=== PATIENT | male | born 1980 ===

== ENCOUNTER 2025-01-17 13:40 | Inpatient (IN) | payer OTHER, SELFPAY ==
[2025-01-17 13:48] VITALS: BP 107/85; BP 114/74; PULSE 58; PULSE 60; RESP 18; TEMP 36; O2SAT 100; O2SAT 99; BMI 20.8
--- NOTE | 2025-01-17 14:09 | MHC.CARE ---
Pt sent in by [facility] and will be inpatient bedsearch, CHD to fa assessment when completed.
[2025-01-17 14:17] LABS: MANUAL DIFF FLAG NO
[2025-01-17 14:18] LABS: Hematocrit 44.2 % (42.0-52.0); Hemoglobin 14.5 g/dl (14.0-18.0); Imm Gran Abs Auto 0.02 X10*3/uL (0.00-0.03); Imm Gran Pct Auto 0.3 % (0.0-0.4); Lymphocytes Absolute Auto 1.9 X10*3/uL (1.2-4.9); Mean Corpuscular HGB Conc 32.8 g/dl (31.0-36.0); Mean Corpuscular Hemoglobin 29.7 pg (27.0-33.0); Mean Corpuscular Volume 90.6 fL (80.0-98.0); NRBC Abs Auto 0.000 X10*3/uL (0.0-0.012); NRBC Pct Auto 0.0 /100WBC (0.0-0.2); Platelet Count 208 X10*3/uL (160-400); Red Blood Count 4.88 X10*6/uL (4.60-5.80); White Blood Count 7.6 X10*3/uL (4.8-10.8)
--- NOTE | 2025-01-17 14:27 | ED_ITS ---
HPI - General Adult General Chief complaint: Psychiatric Symptoms Stated complaint: SI ATTEMPT T-1,VOLUNTARY TRANSPORT PER EMS Time Seen by Provider: 01/17/25 14:25 Source: patient and EMS Mode of arrival: EMS Limitations: no limitations History of Present Illness ED Provider: Katarina Golden PA-C HPI narrative: Patient is a 44 year old assigned male at with no reported medical history presenting to the emergency department today after a suicide attempt. [facility] staff states that the patient attempted to hang himself at their facility last night and had an intentional overdose as a suicide attempt 1 week ago. Patient states that he has no complaints at this time. Related Data Home Medications ?Medication ?Instructions ?Recorded ?Confirmed No Known Home Meds 01/17/25 01/17/25 Allergies Allergy/AdvReac Type Severity Reaction Status Date / Time Penicillins Allergy Anaphylaxis Verified 01/17/25 14:12 Review of Systems 2 Constitutional: Constitutional: Reports as per HPI Eyes: Eyes: Reports as per HPI ENT: Reports as per HPI Cardiovascular: Cardiovascular: Reports as per HPI Respiratory: Respiratory: Reports as per HPI Gastrointestinal: Gastrointestinal: Reports as per HPI Genitourinary: Genitourinary: Reports as per HPI Musculoskeletal: Musculoskeletal: Reports as per HPI Integumentary/Breasts: Skin/Breast: Reports as per HPI Neurologic: Reports as per HPI Psychiatric: Psychiatric: Denies homicidal ideation and Reports suicidal ideation Endocrine: Endocrine: Reports as per HPI Hematologic/Lymphatic: Hematologic/Lymphatic: Reports as per HPI Allergic/Immunologic: Allergic/Immunologic: Reports as per HPI [facility] Past Medical History Attestation statement: The following information was validated with the patient. Source: old records reviewed and nursing notes reviewed Social History Social History Unable to assess alcohol history related to: Unknown Smoked in Last 30 Days: Yes Substance Use Type: Crack/Cocaine Advance Directives: No Advance Directives Information Provided: Yes Do you have a plan to hurt others: No Plan Physical Exam ED Vital Signs: Vital Signs - 24 hr 01/17/25 13:48 01/17/25 14:48 Temperature 96.8 F 96.8 F Pulse Rate 60 60 Respiratory Rate 18 18 Blood Pressure 107/85 107/85 Pulse Oximetry 100 100 Oxygen Delivery Method Room Air Room Air BMI result Body Mass Index 20.8 Const General: cooperative, no acute distress, alert and awake Nutritional Appearance: well nourished Orientation/consciousness: patient oriented x3 HENMT Head: Yes normal to inspection and Yes atraumatic Ears: hearing grossly normal bilaterally and external ears normal General nose exam: Normal external nose present, no nasal discharge noted and no epistaxis Face and sinus: Yes normal facial exam, No abrasion and No laceration Mouth: Normal oral and palatal mucosa present, no drooling and no muffled voice Eyes General: appearance normal, both eyes and all related structures Periorbital: periorbital findings normal Eyelids: Yes eyelids normal Conjunctivae: conjunctivae normal Pupils: Equal, round and reactive pupils present EOM: EOMs intact bilaterally Neck Neck: Yes normal visual inspection and Yes full ROM Resp Effort & Inspection: normal respiratory effort and able to speak in complete sentences Neuro General: patient oriented x3, moves all extremities and CN's II-XI intact bilaterally Cranial nerves: Yes Equal, round and reactive pupils present Cognition (Neuro): normal cognition Extrem General: Yes normal to inspection, Yes full ROM and Yes capillary refill normal Psych Appearance: grossly normal Mental Status: mental status grossly normal Affect: normal affect Attitude: cooperative Medical Decision Making Medical Decision Making MDM Narrative: Patient is a 44 year old assigned male at with no reported medical history presenting to the emergency department today after a suicide attempt. Patient's physical exam was unremarkable - no evidence of ligature sanchez. Patient's blood work was unremarkable. I explained my physical exam findings as well as all test results to the patient. I answered all questions asked by the patient. Patient placed in observation pending CARE team evaluation at 1428. Differential Diagnosis Differential Diagnoses: The differential diagnosis associated with the presentation includes Suicidal ideation Suicide attempt Admission/Observation Consideration of admission/observation: Escalation of care including admission/observation considered Patient's disposition will be determined after CARE Team evaluation. Lab Data [facility] Lab Attestation statement: I reviewed the patient's lab results. My interpretation of these results are in the [facility] Rationale portion of this note. 01/17/25 14:12 01/17/25 14:12 Labs: Lab Results 01/17/25 Range/Units 14:12 WBC 7.6 (4.8-10.8) X10*3/uL RBC 4.88 (4.60-5.80) X10*6/uL Hgb 14.5 (14.0-18.0) g/dl Hct 44.2 (42.0-52.0) % MCV 90.6 (80.0-98.0) fL MCH 29.7 (27.0-33.0) pg MCHC 32.8 (31.0-36.0) g/dl RDW 14.9 (11.0-16.0) % Plt Count 208 (160-400) X10*3/uL MPV 10.4 (9.4-12.4) fL Immature Gran % (Auto) 0.3 (0.0-0.4) % Neut % (Auto) 63.8 (45-73) % Lymph % (Auto) 24.4 (20-40) % [place] % (Auto) 9.5 (2-11) % Eos % (Auto) 1.2 (0-4) % Baso % (Auto) 0.8 (0-2) % Lymph # (Auto) 1.9 (1.2-4.9) X10*3/uL [place] # (Auto) 0.7 (0.1-1.2) X10*3/uL Eos # (Auto) 0.1 (0.0-0.4) X10*3/uL Baso # (Auto) 0.1 (0.0-0.2) X10*3/uL Abs Immat Gran (auto) 0.02 (0.00-0.03) X10*3/uL Absolute Neuts (auto) 4.9 (2.0-8.3) x10*3/uL Absolute Nucleated RBC 0.000 (0.0-0.012) X10*3/uL Nucleated RBC % (auto) 0.0 (0.0-0.2) /100WBC Sodium 139 (135-145) mmol/L Potassium 4.2 (3.3-5.1) mmol/L Chloride 103 (96-108) mmol/L Carbon Dioxide 29 (22-29) mmol/L Anion Gap 11 L (12-20) BUN 17 H (9-16) mg/dL Creatinine 0.73 (0.5-1.4) mg/dL Estim Creat Clear Calc 116.8 Estimated GFR > 60 Random Glucose 120 H (60-115) mg/dL Calcium 9.4 (8.4-10.2) mg/dL Magnesium 2.3 (1.6-2.6) mg/dL Total Bilirubin 0.4 (0.0-1.0) mg/dL AST 33 (5-37) U/L ALT 62 H (0-40) U/L Alkaline Phosphatase 70 (39-117) U/L Total Protein 7.2 (6.5-8.0) g/dL Albumin 4.5 (3.5-5.0) g/dL Salicylates < 5.0 L (15-30) mg/dL Acetaminophen < 3 (<30) mcg/mL Ethyl Alcohol < 10 mg/dL Independent Historian Clinical information obtained from an independent historian. History obtained from or confirmed by: EMS (EMS provided additional history and confirmed the history provided by the patient. ) Discharge Plan Discharge Clinical Impression: Suicide attempt Prescriptions: No Action No Known Home Meds Interventions: [place]-Suicide Risk Severity Scale Last Done: 01/17/25 14:48 Print Language: Taiwanese
[2025-01-17 14:46] LABS: Alanine Aminotransferase 62 U/L (0-40); Albumin Level 4.5 g/dL (3.5-5.0); Alkaline Phosphatase 70 U/L (39-117); Anion Gap 11 (12-20); Aspartate Amino Transferase 33 U/L (5-37); Blood Urea Nitrogen 17 mg/dL (9-16); Calcium 9.4 mg/dL (8.4-10.2); Carbon Dioxide 29 mmol/L (22-29); Chloride 103 mmol/L (96-108); Creatinine Clr Calc Pharmacy 116.8; Estimated Glomerular Filt Rate > 60; Magnesium 2.3 mg/dL (1.6-2.6); Potassium 4.2 mmol/L (3.3-5.1); Sodium 139 mmol/L (135-145); Total Protein 7.2 g/dL (6.5-8.0)
[2025-01-17 14:48] VITALS: BP 107/85; PULSE 60; RESP 18; TEMP 36; O2SAT 100
[2025-01-17 14:51] LABS: Acetaminophen LAB < 3 mcg/mL (<30); Salicylate < 5.0 mg/dL (15-30)
--- NOTE | 2025-01-17 17:24 | ECG_ITS ---
Test Reason : RO QTC Blood Pressure : */* mmHG Vent. Rate : 54 BPM Atrial Rate : 54 BPM P-R Int : 128 ms QRS Dur : 80 ms QT Int : 408 ms P-R-T Axes : 38 18 13 degrees QTcB Int : 386 ms Sinus bradycardia Otherwise normal ECG No previous ECGs available Referred By: Generic ED Physician Electronically Signed By: YONG JEROME
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
[2025-01-17 17:45] LABS: Appearance Urine Clear; Glucose Urine UA Negative (Negative); PH 6.5 (5.0-9.0); Specific Gravity - Urine 1.025 (1.005-1.025); UMIC TRIGGER UACC YES
[2025-01-17 17:55] LABS: Cannabinoid Screen Urine POSITIVE (Not Detect)
[2025-01-17 18:27] VITALS: BP 118/60; PULSE 63; RESP 18; TEMP 36.7; O2SAT 100
--- NOTE | 2025-01-17 19:41 | PC.NURSE ---
Assumed care of patient at 1845, patient calm and cooperative, offering no complaints to this RN. Pt aware of plan of care for inpatient admission moncho
[2025-01-17 20:55] VITALS: BP 111/75; PULSE 56; RESP 16; TEMP 36.8; O2SAT 100
[2025-01-17 20:58] VITALS: BMI 23.3
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
[2025-01-18 07:49] VITALS: BP 131/68; PULSE 61; RESP 16; TEMP 36.4; O2SAT 100
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
[2025-01-18 20:00] VITALS: BP 138/78; PULSE 58; RESP 16; TEMP 36.8; O2SAT 97
[2025-01-19 07:00] VITALS: BMI 23.5
[2025-01-19 07:41] VITALS: BP 130/62; PULSE 50; RESP 20; TEMP 36.9; O2SAT 100
[2025-01-19 08:05] LABS: Hemoglobin A1C 152.9526 umol/L; Total Hemoglobin (HGBA1C) 3891.8775 umol/L
[2025-01-19 08:21] LABS: Alanine Aminotransferase 87 U/L (0-40); Albumin Level 4.3 g/dL (3.5-5.0); Alkaline Phosphatase 69 U/L (39-117); Anion Gap 11 (12-20); Aspartate Amino Transferase 45 U/L (5-37); Blood Urea Nitrogen 16 mg/dL (9-16); Calcium 9.5 mg/dL (8.4-10.2); Carbon Dioxide 29 mmol/L (22-29); Chloride 103 mmol/L (96-108); Cholesterol 202 mg/dL (<200); Creatinine Clr Calc Pharmacy 122.4; Estimated Glomerular Filt Rate > 60; HDL Cholesterol 60 mg/dL (>40); Potassium 4.5 mmol/L (3.3-5.1); Sodium 138 mmol/L (135-145); Total Protein 7.2 g/dL (6.5-8.0); Triglycerides 73 mg/dL (<150)
[2025-01-19 08:38] LABS: Free T4 (Free Thyroxine) 0.98 ng/dL (0.71-1.85); Thyroid Stimulating Hormone 2.81 uIU/mL (0.32-4.0)
--- NOTE | 2025-01-19 17:00 | HO.WOUND ---
Wound Consult: Initial 44yr old?male admitted [place] [facility] [place] 01[place]17[place]25 - See progress notes and H&P for detailed history.? Wound consult placed for Bilateral Elbow Chronic Wounds. Patient agreeable to assessment and photo documentation.? Right ELbow, Left Elbow, Arm and Axilla Etiology: Ulcerations secondary to skin atrophy from previous bursn and scar tissue formation ? Wound Bed: clean red pink wound beds Drainage / Odor: None Edges: ? attached and well defined Xiao wound: scar tissue and intact ? No Induration, Fluctuance or Warmth noted Pain: tenderness and burning to sites Goals of Treatment: ? Moist wound healing. Patient experiencing dry skin no open wounds noted to trunk or legs but significantly dry skin noted. Provider to order thick ointment cream such as Aquaphor or Dermacin cream. Recommendations: Left Elbow, Right Axilla, Right Forearm and Elbow - Cleanse with normal saline, pat dry. Or With Routine showering with soap and water. ?Apply Xeroform secure foam dressings. Change every other day and PRN. ? Re-consult wound care Nurse for wound deterioration or wound changes.
--- NOTE | 2025-01-19 17:08 | P.PNPSI_ITS ---
Subjective Subjective Date of Service: 01/19/25 Reason For Visit: SI. 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 Active on unit. social with peers. attending groups. Patient reports feeling better but continues to have anxiety about getting into a program. He reports he slept like a baby last night. deneis SI/HI/VH/AH. Future oriented. Medication Compliance: Yes Side effects from medications: No Attending Groups: Intermittent Mental Status Exam Mental Status Exam Narrative: Pt is alert and oriented; behavior is cooperative, friendly and calm; dressed in casual attire; mood is described as good ; eye contact appropriate; Speech is normal rate, volume and not pressured; thought process is organized and goal directed; Thought content is on tx; denies SI/HI/VH/AH. Diagnostics Vital Signs (24Hr): Vital Signs - 24 hr 01/18/25 20:00 01/19/25 07:41 Temperature 98.2 F 98.5 F Pulse Rate 58 50 Respiratory Rate 16 20 Blood Pressure 138/78 130/62 Pulse Oximetry 97 100 Oxygen Delivery Method Room Air Room Air BMI result Body Mass Index 23.5 Labs 01/17/25 14:12 01/19/25 07:39 Labs: Laboratory Results - last 48 hr 01/17/25 01/19/25 17:33 07:39 Sodium 138 Potassium 4.5 Chloride 103 Carbon Dioxide 29 Anion Gap 11 L BUN 16 Creatinine 0.77 Estim Creat Clear Calc 122.4 Estimated GFR > 60 Random Glucose 101 Estimat Average Glucose 117 Hemoglobin A1c % 5.7 Calcium 9.5 Total Bilirubin 0.3 AST 45 H ALT 87 H Alkaline Phosphatase 69 Total Protein 7.2 Albumin 4.3 Triglycerides 73 Cholesterol 202 H LDL Cholesterol, Calc 128 H HDL Cholesterol 60 TSH 2.81 Free T4 0.98 Urine Color Yellow Urine Appearance Clear Urine pH 6.5 Ur Specific [place] 1.025 Urine Protein Negative Urine Glucose (UA) Negative Urine Ketones Negative Urine Blood Moderate (2+) H Urine Nitrite Negative Ur Leukocyte Esterase Trace H Urine RBC 11-20 H Urine WBC 0-5 Ur Squamous Epith Cells 3-5 Urine Bacteria 1+ Hyaline Casts 0-2 Urine Opiates Screen Not Detected Ur Buprenorphine Scrn Not Detected Ur Oxycodone Screen Not Detected Urine Methadone Screen Not Detected Urine Fentanyl Screen Not Detected Ur Barbiturates Screen Not Detected Ur Phencyclidine Scrn Not Detected Ur Amphetamines Screen Not Detected U Benzodiazepines Scrn POSITIVE H Urine Cocaine Screen POSITIVE H U Marijuana (THC) Screen POSITIVE H Medications Medications Current Medications Acetaminophen (Acetaminophen 325 Mg Tablet) 650 mg PO Q6H PRN PRN Reason: Headache/Pain, Scale 1-10 Last Admin: 01/18/25 22:31 Dose: 650 mg Al Hydroxide/Mg Hydroxide (Magnesium Hydrox/Alum Hydrox 30 Ml Oral.Susp) 30 ml PO Q6H PRN PRN Reason: Heartburn/Nausea Fluoxetine HCl (Fluoxetine Hcl 20 Mg Capsule) 20 mg PO DAILY SANTOS Last Admin: 01/19/25 08:07 Dose: 20 mg Hydroxyzine HCl (Hydroxyzine Hcl 25 Mg Tablet) 25 mg PO Q6H PRN PRN Reason: mild anxiety Last Admin: 01/18/25 22:31 Dose: 25 mg Magnesium Hydroxide (Milk Of Magnesia 30 Ml Oral.Susp) 30 ml PO DAILY PRN PRN Reason: Constipation Multi-Ingred Cream/Lotion/Oil/Oint (Mineral Oil/Petrolatum,White 106 Gm Tube) 1 appl TOPICAL BID SANTOS; Protocol Nicotine (Nicotine 21 Mg Patch.Td24) 21 mg TRANSDERMA DAILY PRN PRN Reason: nicotine craving Nicotine Polacrilex (Nicotine Polacrilex 2 Mg Gum) 2 mg BUCCAL Q2H PRN PRN Reason: Nicotine Cravings Olanzapine (Olanzapine 5 Mg Tablet) 5 mg PO BID PRN PRN Reason: agitation Last Admin: 01/18/25 22:32 Dose: 5 mg Trazodone HCl (Trazodone Hcl 50 Mg Tablet) 50 mg PO BEDTIME MRX1 PRN PRN Reason: Insomnia Last Admin: 01/18/25 22:31 Dose: 50 mg Allergies Allergies Allergy/AdvReac Type Severity Reaction Status Date / Time Penicillins Allergy Anaphylaxis Verified 01/17/25 14:12 Assessment & Plan Assessment & Plan (1) MDD (major depressive disorder), recurrent episode: Status: Acute Code(s): F33.9 - Major depressive disorder, recurrent, unspecified (2) PTSD (post-traumatic stress disorder): Status: Acute Code(s): F43.10 - Post-traumatic stress disorder, unspecified (3) Cocaine use disorder: Status: Acute Code(s): F14.10 - Cocaine abuse, uncomplicated (4) Alcohol use disorder: Status: Acute Code(s): F10.90 - Alcohol use, unspecified, uncomplicated (5) Homelessness: Status: Acute Code(s): Z59.00 - Homelessness unspecified Plan Patient is a 44 year old male with hx of MDD, PTSD, alcohol use disorder and cocaine use disorder who self presented to ER due to increased depression secondary to increased life stressors. 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 Active on unit. social with peers. attending groups. Patient reports feeling better but continues to have anxiety about getting into a program. He reports he slept like a baby last night. denfidencios SI/HI/VH/AH. Future oriented. Patient educated on: diagnosis and medication risk/benefits Reason for continued inpatient stay Substantial Risk for: med/psych decompensation Time Spent With Patient Time: Total time managing care of this patient today _20___ minutes.
[2025-01-19 20:00] VITALS: BP 130/78; PULSE 75; RESP 16; TEMP 36.9; O2SAT 99
[2025-01-19] MEDS: Mineral Oil/Petrolatum,White 106 GM Tube 1 APPL TOPICAL (20:37)
[2025-01-20 07:10] VITALS: BP 120/80; PULSE 55; RESP 17; TEMP 36.4; O2SAT 99
--- NOTE | 2025-01-20 08:48 | HO.PSYCHPN ---
Subjective Subjective Date of Service: 01/20/25 Reason For Visit: SI. 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 Active on unit. social with peers. attending groups. Patient continues to report feeling good ;continues on going to a program. Patient reports if he was not accepted into a program he plans on staying with his cousin. deneis SI/HI/VH/AH. Continue current tx plan. Medication Compliance: Yes Side effects from medications: No Attending Groups: Yes Mental Status Exam Mental Status Exam Narrative: Pt is alert and oriented; behavior is cooperative, friendly and calm; dressed in casual attire; mood is described as good ; eye contact appropriate; Speech is normal rate, volume and not pressured; thought process is organized; Thought content is on tx; denies SI/HI/VH/AH. Diagnostics Vital Signs (24Hr): Vital Signs - 24 hr 01/19/25 20:00 01/20/25 07:10 Temperature 98.5 F 97.6 F Pulse Rate 75 55 Respiratory Rate 16 17 Blood Pressure 130/78 120/80 Pulse Oximetry 99 99 Oxygen Delivery Method Room Air Room Air BMI result Body Mass Index 23.5 Labs 01/17/25 14:12 01/19/25 07:39 Labs: Laboratory Results - last 48 hr 01/19/25 07:39 Sodium 138 Potassium 4.5 Chloride 103 Carbon Dioxide 29 Anion Gap 11 L BUN 16 Creatinine 0.77 Estim Creat Clear Calc 122.4 Estimated GFR > 60 Random Glucose 101 Estimat Average Glucose 117 Hemoglobin A1c % 5.7 Calcium 9.5 Total Bilirubin 0.3 AST 45 H ALT 87 H Alkaline Phosphatase 69 Total Protein 7.2 Albumin 4.3 Triglycerides 73 Cholesterol 202 H LDL Cholesterol, Calc 128 H HDL Cholesterol 60 TSH 2.81 Free T4 0.98 Medications Medications Current Medications Acetaminophen (Acetaminophen 325 Mg Tablet) 650 mg PO Q6H PRN PRN Reason: Headache/Pain, Scale 1-10 Last Admin: 01/18/25 22:31 Dose: 650 mg Al Hydroxide/Mg Hydroxide (Magnesium Hydrox/Alum Hydrox 30 Ml Oral.Susp) 30 ml PO Q6H PRN PRN Reason: Heartburn/Nausea Fluoxetine HCl (Fluoxetine Hcl 20 Mg Capsule) 20 mg PO DAILY SANTOS Last Admin: 01/19/25 08:07 Dose: 20 mg Hydroxyzine HCl (Hydroxyzine Hcl 25 Mg Tablet) 25 mg PO Q6H PRN PRN Reason: mild anxiety Last Admin: 01/19/25 23:28 Dose: 25 mg Magnesium Hydroxide (Milk Of Magnesia 30 Ml Oral.Susp) 30 ml PO DAILY PRN PRN Reason: Constipation Multi-Ingred Cream/Lotion/Oil/Oint (Mineral Oil/Petrolatum,White 106 Gm Tube) 1 appl TOPICAL BID SANTOS; Protocol Last Admin: 01/19/25 20:37 Dose: 1 appl Nicotine (Nicotine 21 Mg Patch.Td24) 21 mg TRANSDERMA DAILY PRN PRN Reason: nicotine craving Nicotine Polacrilex (Nicotine Polacrilex 2 Mg Gum) 2 mg BUCCAL Q2H PRN PRN Reason: Nicotine Cravings Olanzapine (Olanzapine 5 Mg Tablet) 5 mg PO BID PRN PRN Reason: agitation Last Admin: 01/19/25 23:28 Dose: 5 mg Trazodone HCl (Trazodone Hcl 50 Mg Tablet) 50 mg PO BEDTIME MRX1 PRN PRN Reason: Insomnia Last Admin: 01/19/25 23:28 Dose: 50 mg Allergies Allergies Allergy/AdvReac Type Severity Reaction Status Date / Time Penicillins Allergy Anaphylaxis Verified 01/17/25 14:12 Assessment & Plan Assessment & Plan (1) MDD (major depressive disorder), recurrent episode: Status: Acute Code(s): F33.9 - Major depressive disorder, recurrent, unspecified (2) PTSD (post-traumatic stress disorder): Status: Acute Code(s): F43.10 - Post-traumatic stress disorder, unspecified (3) Cocaine use disorder: Status: Acute Code(s): F14.10 - Cocaine abuse, uncomplicated (4) Alcohol use disorder: Status: Acute Code(s): F10.90 - Alcohol use, unspecified, uncomplicated (5) Homelessness: Status: Acute Code(s): Z59.00 - Homelessness unspecified Plan Patient is a 44 year old male with hx of MDD, PTSD, alcohol use disorder and cocaine use disorder who self presented to ER due to increased depression secondary to increased life stressors. Plan: CV 15 minute safety checks Obtain collateral Start: Prozac 20mg PO daily Referral to outpatient psychiatric providers Referral to substance abuse program Encourage groups Discharge planning 01/19: account liaison hospice present. Active on unit. social with peers. attending groups. Patient reports feeling better but continues to have anxiety about getting into a program. He reports he slept like a baby last night. getachew CHENEY/SUSY/MADELYN/AH. Future oriented. 01/20: account liaison hospice present. Active on unit. social with peers. attending groups. Patient continues to report feeling good ;continues on going to a program. Patient reports if he was not accepted into a program he plans on staying with his cousin. getachew CHENEY/SUSY/MADELYN/WAYNE. Continue current tx plan. Patient educated on: diagnosis and medication risk/benefits Reason for continued inpatient stay Substantial Risk for: med/psych decompensation Time Spent With Patient Time: Total time managing care of this patient today _20___ minutes.
[2025-01-20] MEDS: Mineral Oil/Petrolatum,White 106 GM Tube 1 APPL TOPICAL (08:52)
[2025-01-20 19:23] VITALS: BP 118/73; PULSE 70; TEMP 36.8; O2SAT 98
[2025-01-21 07:49] VITALS: BP 128/71; PULSE 60; RESP 16; TEMP 36.4; O2SAT 100
[2025-01-21] MEDS: Mineral Oil/Petrolatum,White 106 GM Tube 1 APPL TOPICAL (08:25)
--- NOTE | 2025-01-21 14:22 | HO.PSYCHPN ---
Subjective Subjective Date of Service: 01/21/25 Reason For Visit: SI. 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 Patient continues to report feeling good ; reports feeling more anxious today d/t having to wait to hear if he was accepting into a program. reports sleeping well. denies SI/HI/VH/AH. Continue current tx plan. Medication Compliance: Yes Side effects from medications: No Attending Groups: Yes Mental Status Exam Mental Status Exam Narrative: Pt is alert and oriented; behavior is cooperative, friendly and calm; dressed in casual attire; mood is described as anxious ; eye contact appropriate; Speech is normal rate, volume and not pressured; thought process is organized; Thought content is on tx; denies SI/HI/VH/AH. Diagnostics Vital Signs (24Hr): Vital Signs - 24 hr 01/20/25 19:23 01/21/25 07:49 Temperature 98.2 F 97.5 F Pulse Rate 70 60 Respiratory Rate 16 Blood Pressure 118/73 128/71 Pulse Oximetry 98 100 Oxygen Delivery Method Room Air Room Air BMI result Body Mass Index 23.5 Labs 01/17/25 14:12 01/19/25 07:39 Medications Medications Current Medications Acetaminophen (Acetaminophen 325 Mg Tablet) 650 mg PO Q6H PRN PRN Reason: Headache/Pain, Scale 1-10 Last Admin: 01/18/25 22:31 Dose: 650 mg Al Hydroxide/Mg Hydroxide (Magnesium Hydrox/Alum Hydrox 30 Ml Oral.Susp) 30 ml PO Q6H PRN PRN Reason: Heartburn/Nausea Fluoxetine HCl (Fluoxetine Hcl 20 Mg Capsule) 20 mg PO DAILY SANTOS Last Admin: 01/21/25 08:24 Dose: 20 mg Hydroxyzine HCl (Hydroxyzine Hcl 25 Mg Tablet) 25 mg PO Q6H PRN PRN Reason: mild anxiety Last Admin: 01/20/25 23:01 Dose: 25 mg Magnesium Hydroxide (Milk Of Magnesia 30 Ml Oral.Susp) 30 ml PO DAILY PRN PRN Reason: Constipation Multi-Ingred Cream/Lotion/Oil/Oint (Mineral Oil/Petrolatum,White 106 Gm Tube) 1 appl TOPICAL BID SANTOS; Protocol Last Admin: 01/21/25 08:25 Dose: 1 appl Nicotine (Nicotine 21 Mg Patch.Td24) 21 mg TRANSDERMA DAILY PRN PRN Reason: nicotine craving Nicotine Polacrilex (Nicotine Polacrilex 2 Mg Gum) 2 mg BUCCAL Q2H PRN PRN Reason: Nicotine Cravings Olanzapine (Olanzapine 5 Mg Tablet) 5 mg PO BID PRN PRN Reason: agitation Last Admin: 01/20/25 23:02 Dose: 5 mg Trazodone HCl (Trazodone Hcl 50 Mg Tablet) 50 mg PO BEDTIME MRX1 PRN PRN Reason: Insomnia Last Admin: 01/20/25 23:02 Dose: 50 mg Allergies Allergies Allergy/AdvReac Type Severity Reaction Status Date / Time Penicillins Allergy Anaphylaxis Verified 01/17/25 14:12 Assessment & Plan Assessment & Plan (1) MDD (major depressive disorder), recurrent episode: Status: Acute Code(s): F33.9 - Major depressive disorder, recurrent, unspecified (2) PTSD (post-traumatic stress disorder): Status: Acute Code(s): F43.10 - Post-traumatic stress disorder, unspecified (3) Cocaine use disorder: Status: Acute Code(s): F14.10 - Cocaine abuse, uncomplicated (4) Alcohol use disorder: Status: Acute Code(s): F10.90 - Alcohol use, unspecified, uncomplicated (5) Homelessness: Status: Acute Code(s): Z59.00 - Homelessness unspecified Plan Patient is a 44 year old male with hx of MDD, PTSD, alcohol use disorder and cocaine use disorder who self presented to ER due to increased depression secondary to increased life stressors. 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 Active on unit. social with peers. attending groups. Patient reports feeling better but continues to have anxiety about getting into a program. He reports he slept like a baby last night. getachew SI/HI/VH/AH. Future oriented. 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 Active on unit. social with peers. attending groups. Patient continues to report feeling good ;continues on going to a program. Patient reports if he was not accepted into a program he plans on staying with his cousin. getachew SI/HI/VH/AH. Continue current tx plan. 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 Patient continues to report feeling good ; reports feeling more anxious today d/t having to wait to hear if he was accepting into a program. reports sleeping well. denies SI/HI/VH/AH. Continue current tx plan. Patient educated on: diagnosis, medication risk/benefits and therapeutic strategies Reason for continued inpatient stay Substantial Risk for: med/psych decompensation Time Spent With Patient Time: Total time managing care of this patient today _20___ minutes.
[2025-01-21 19:18] VITALS: BP 119/57; PULSE 64; RESP 16; TEMP 36.9; O2SAT 98
[2025-01-21 22:37] VITALS: RESP 22
[2025-01-22 07:56] VITALS: BP 121/71; PULSE 58; RESP 16; TEMP 36.3; O2SAT 99
[2025-01-22] MEDS: Mineral Oil/Petrolatum,White 106 GM Tube 1 APPL TOPICAL ×2 (08:20→23:41)
--- NOTE | 2025-01-22 08:31 | P.PNPSI_ITS ---
Subjective Subjective Date of Service: 01/22/25 Reason For Visit: SI. 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 Active on unit. social with peers. Similar to yesterday. Continues to report feeling good and waiting on program. observed making multiple phone calls. denies SI/HI/VH/AH. Continue current tx plan. Medication Compliance: Yes Side effects from medications: No Attending Groups: Yes Mental Status Exam Mental Status Exam Narrative: Pt is alert and oriented; behavior is cooperative, friendly and calm; dressed in casual attire; mood is described as good ; eye contact appropriate; Speech is normal rate, volume and not pressured; thought process is organized; Thought content is on discharge; denies SI/HI/VH/AH. Diagnostics Vital Signs (24Hr): Vital Signs - 24 hr 01/21/25 19:18 01/21/25 22:37 01/22/25 07:56 Temperature 98.4 F 97.3 F Pulse Rate 64 58 Respiratory Rate 16 22 H 16 Blood Pressure 119/57 L 121/71 Pulse Oximetry 98 99 Oxygen Delivery Method Room Air Room Air BMI result Body Mass Index 23.5 Labs 01/17/25 14:12 01/19/25 07:39 Medications Medications Current Medications Acetaminophen (Acetaminophen 325 Mg Tablet) 650 mg PO Q6H PRN PRN Reason: Headache/Pain, Scale 1-10 Last Admin: 01/18/25 22:31 Dose: 650 mg Al Hydroxide/Mg Hydroxide (Magnesium Hydrox/Alum Hydrox 30 Ml Oral.Susp) 30 ml PO Q6H PRN PRN Reason: Heartburn/Nausea Fluoxetine HCl (Fluoxetine Hcl 20 Mg Capsule) 20 mg PO DAILY SANTOS Last Admin: 01/22/25 08:17 Dose: 20 mg Hydroxyzine HCl (Hydroxyzine Hcl 25 Mg Tablet) 25 mg PO Q6H PRN PRN Reason: mild anxiety Last Admin: 01/21/25 22:15 Dose: 25 mg Magnesium Hydroxide (Milk Of Magnesia 30 Ml Oral.Susp) 30 ml PO DAILY PRN PRN Reason: Constipation Multi-Ingred Cream/Lotion/Oil/Oint (Mineral Oil/Petrolatum,White 106 Gm Tube) 1 appl TOPICAL BID SANTOS; Protocol Last Admin: 01/22/25 08:20 Dose: 1 appl Nicotine (Nicotine 21 Mg Patch.Td24) 21 mg TRANSDERMA DAILY PRN PRN Reason: nicotine craving Nicotine Polacrilex (Nicotine Polacrilex 2 Mg Gum) 2 mg BUCCAL Q2H PRN PRN Reason: Nicotine Cravings Olanzapine (Olanzapine 5 Mg Tablet) 5 mg PO BID PRN PRN Reason: agitation Last Admin: 01/22/25 07:37 Dose: 5 mg Trazodone HCl (Trazodone Hcl 50 Mg Tablet) 50 mg PO BEDTIME MRX1 PRN PRN Reason: Insomnia Last Admin: 01/21/25 22:15 Dose: 50 mg Allergies Allergies Allergy/AdvReac Type Severity Reaction Status Date / Time Penicillins Allergy Anaphylaxis Verified 01/17/25 14:12 Assessment & Plan Assessment & Plan (1) MDD (major depressive disorder), recurrent episode: Status: Acute Code(s): F33.9 - Major depressive disorder, recurrent, unspecified (2) PTSD (post-traumatic stress disorder): Status: Acute Code(s): F43.10 - Post-traumatic stress disorder, unspecified (3) Cocaine use disorder: Status: Acute Code(s): F14.10 - Cocaine abuse, uncomplicated (4) Alcohol use disorder: Status: Acute Code(s): F10.90 - Alcohol use, unspecified, uncomplicated (5) Homelessness: Status: Acute Code(s): Z59.00 - Homelessness unspecified Plan Patient is a 44 year old male with hx of MDD, PTSD, alcohol use disorder and cocaine use disorder who self presented to ER due to increased depression secondary to increased life stressors. 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 Active on unit. social with peers. attending groups. Patient reports feeling better but continues to have anxiety about getting into a program. He reports he slept like a baby last night. getachew SI/HI/VH/AH. Future oriented. 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 Active on unit. social with peers. attending groups. Patient continues to report feeling good ;continues on going to a program. Patient reports if he was not accepted into a program he plans on staying with his cousin. getachew SI/HI/VH/AH. Continue current tx plan. 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 Patient continues to report feeling good ; reports feeling more anxious today d/t having to wait to hear if he was accepting into a program. reports sleeping well. denies SI/HI/VH/AH. Continue current tx plan. 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 Active on unit. social with peers. Similar to yesterday. Continues to report feeling good and waiting on program. observed making multiple phone calls. denies SI/HI/VH/AH. Continue current tx plan. Patient educated on: diagnosis and medication risk/benefits Reason for continued inpatient stay Substantial Risk for: med/psych decompensation Time Spent With Patient Time: Total time managing care of this patient today _15___ minutes.
[2025-01-22 19:38] VITALS: BP 128/73; PULSE 63; RESP 16; TEMP 36.8; O2SAT 99
[2025-01-23 07:25] VITALS: BP 118/76; PULSE 60; RESP 16; TEMP 36.8; O2SAT 99
[2025-01-23] MEDS: Mineral Oil/Petrolatum,White 106 GM Tube 1 APPL TOPICAL ×2 (08:37→21:13)
--- NOTE | 2025-01-23 13:23 | HO.PSYCHPN ---
Subjective Subjective Date of Service: 01/23/25 Reason For Visit: SI. ?OD on meds Subjective Notes: Conditional Voluntary Interim History: associate spa director present. Continues to report feeling good and waiting on program; pt reports he will decide if he feels he wants to wait for a program tomorrow or just leave to his cousins house. denies SI/HI/VH/AH. Continue current tx plan. Medication Compliance: Yes Side effects from medications: No Attending Groups: Yes Mental Status Exam Mental Status Exam Narrative: Pt is alert and oriented; behavior is cooperative, friendly and calm; dressed in casual attire; mood is described as good ; eye contact appropriate; Speech is normal rate, volume and not pressured; thought process is organized; Thought content is on discharge; denies SI/HI/VH/AH. Diagnostics Vital Signs (24Hr): Vital Signs - 24 hr 01/22/25 19:38 01/23/25 07:25 Temperature 98.3 F 98.3 F Pulse Rate 63 60 Respiratory Rate 16 16 Blood Pressure 128/73 118/76 Pulse Oximetry 99 99 Oxygen Delivery Method Room Air Room Air BMI result Body Mass Index 23.5 Labs 01/17/25 14:12 01/19/25 07:39 Medications Medications Current Medications Acetaminophen (Acetaminophen 325 Mg Tablet) 650 mg PO Q6H PRN PRN Reason: Headache/Pain, Scale 1-10 Last Admin: 01/23/25 10:44 Dose: 650 mg Al Hydroxide/Mg Hydroxide (Magnesium Hydrox/Alum Hydrox 30 Ml Oral.Susp) 30 ml PO Q6H PRN PRN Reason: Heartburn/Nausea Fluoxetine HCl (Fluoxetine Hcl 20 Mg Capsule) 20 mg PO DAILY SANTOS Last Admin: 01/23/25 08:36 Dose: 20 mg Hydroxyzine HCl (Hydroxyzine Hcl 25 Mg Tablet) 25 mg PO Q6H PRN PRN Reason: mild anxiety Last Admin: 01/23/25 08:36 Dose: 25 mg Magnesium Hydroxide (Milk Of Magnesia 30 Ml Oral.Susp) 30 ml PO DAILY PRN PRN Reason: Constipation Multi-Ingred Cream/Lotion/Oil/Oint (Mineral Oil/Petrolatum,White 106 Gm Tube) 1 appl TOPICAL BID SANTOS; Protocol Last Admin: 01/23/25 08:37 Dose: 1 appl Nicotine (Nicotine 21 Mg Patch.Td24) 21 mg TRANSDERMA DAILY PRN PRN Reason: nicotine craving Nicotine Polacrilex (Nicotine Polacrilex 2 Mg Gum) 2 mg BUCCAL Q2H PRN PRN Reason: Nicotine Cravings Olanzapine (Olanzapine 5 Mg Tablet) 5 mg PO BID PRN PRN Reason: agitation Last Admin: 01/22/25 23:39 Dose: 5 mg Trazodone HCl (Trazodone Hcl 50 Mg Tablet) 50 mg PO BEDTIME MRX1 PRN PRN Reason: Insomnia Last Admin: 01/22/25 23:39 Dose: 50 mg Allergies Allergies Allergy/AdvReac Type Severity Reaction Status Date / Time Penicillins Allergy Anaphylaxis Verified 01/17/25 14:12 Assessment & Plan Assessment & Plan (1) MDD (major depressive disorder), recurrent episode: Status: Acute Code(s): F33.9 - Major depressive disorder, recurrent, unspecified (2) PTSD (post-traumatic stress disorder): Status: Acute Code(s): F43.10 - Post-traumatic stress disorder, unspecified (3) Cocaine use disorder: Status: Acute Code(s): F14.10 - Cocaine abuse, uncomplicated (4) Alcohol use disorder: Status: Acute Code(s): F10.90 - Alcohol use, unspecified, uncomplicated (5) Homelessness: Status: Acute Code(s): Z59.00 - Homelessness unspecified Plan Patient is a 44 year old male with hx of MDD, PTSD, alcohol use disorder and cocaine use disorder who self presented to ER due to increased depression secondary to increased life stressors. Plan: CV 15 minute safety checks Obtain collateral Start: Prozac 20mg PO daily Referral to outpatient psychiatric providers Referral to substance abuse program Encourage groups Discharge planning 01/19: associate spa director present. Active on unit. social with peers. attending groups. Patient reports feeling better but continues to have anxiety about getting into a program. He reports he slept like a baby last night. getachew SI/HI/VH/AH. Future oriented. 01/20: associate spa director present. Active on unit. social with peers. attending groups. Patient continues to report feeling good ;continues on going to a program. Patient reports if he was not accepted into a program he plans on staying with his cousin. getachew SI/HI/VH/AH. Continue current tx plan. 01/21: associate spa director present. Patient continues to report feeling good ; reports feeling more anxious today d/t having to wait to hear if he was accepting into a program. reports sleeping well. denies SI/HI/VH/AH. Continue current tx plan. 01/22: associate spa director present. Active on unit. social with peers. Similar to yesterday. Continues to report feeling good and waiting on program. observed making multiple phone calls. denies SI/HI/VH/AH. Continue current tx plan. 01/23: associate spa director present. Continues to report feeling good and waiting on program; pt reports he will decide if he feels he wants to wait for a program tomorrow or just leave to his cousins house. denies SI/HI/VH/AH. Continue current tx plan. Patient educated on: diagnosis, medication risk/benefits and therapeutic strategies Reason for continued inpatient stay Substantial Risk for: med/psych decompensation Time Spent With Patient Time: Total time managing care of this patient today _20___ minutes.
[2025-01-23 20:00] VITALS: BP 116/65; PULSE 73; RESP 16; TEMP 36.5; O2SAT 98
[2025-01-24 07:40] VITALS: BP 154/100; PULSE 56; RESP 16; TEMP 36.3; O2SAT 100
[2025-01-24] MEDS: Mineral Oil/Petrolatum,White 106 GM Tube 1 APPL TOPICAL (08:19)
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
== END 2025-01-24 12:48 | disposition home or self-care (01) | DRG 751 ==
LOC: HO.ED 17:32 → HO.PADLT16 19:16
PROVIDERS: Admitting Provider Nurse Practitioner Psychiatric/Mental Health; Emergency Provider Emergency Medicine Emergency Medical Services; Responsible Provider Registered Nurse; Visit Provider Psychiatry & Neurology Psychiatry
DX: F33.9 Major depressive disorder, recurrent, unspecified (principal); F10.90 Alcohol use, unspecified, uncomplicated; F14.10 Cocaine abuse, uncomplicated; F43.10 Post-traumatic stress disorder, unspecified; Z91.51 Personal history of suicidal behavior; Z59.02 Unsheltered homelessness; Z79.899 Other long term (current) drug therapy
CPT/HCPCS: 36415; 80053; 80061; 80143; 80179; 80307; 81001; 83036; 83735; 84439; 84443; 85025; 93005; 94660; 99285

== ENCOUNTER → 2025-01-17 17:24 | Outpatient (BNV) | payer MEDICAID, SELFPAY | PROVIDERS: Admitting Provider Nurse Practitioner Psychiatric/Mental Health; Emergency Provider Emergency Medicine Emergency Medical Services; Responsible Provider Registered Nurse; Visit Provider Internal Medicine | DX: R00.1 Bradycardia, unspecified (principal) | CPT/HCPCS: 93010 ==

== ENCOUNTER → 2025-01-17 19:04 | Outpatient (BNV) | payer OTHER, SELFPAY | PROVIDERS: Admitting Provider Nurse Practitioner Psychiatric/Mental Health; Emergency Provider Emergency Medicine Emergency Medical Services; Responsible Provider Registered Nurse; Visit Provider Registered Nurse | DX: F33.2 Major depressive disorder, recurrent severe without psychotic features (principal); F14.10 Cocaine abuse, uncomplicated; F10.90 Alcohol use, unspecified, uncomplicated; F43.11 Post-traumatic stress disorder, acute; Z59.00 Homelessness unspecified | CPT/HCPCS: 99233 ==